=== PATIENT | female | born 1940 | race Caucasian/White ===

== ENCOUNTER → 2025-03-01 | Outpatient (CLI) | payer MEDICARE | LOC: M PLARAD 09:09 | PROVIDERS: ATTEND Physician Assistant Medical | DX: C83.31 Diffuse large B-cell lymphoma, lymph nodes of head, face, and neck (principal) | CPT/HCPCS: 78815; A9552 ==

== ENCOUNTER → 2025-06-18 | Outpatient (CLI) | payer MEDICARE | LOC: M PLARAD 13:51 | PROVIDERS: ATTEND Internal Medicine Hematology & Oncology | DX: C83.390 Primary central nervous system lymphoma (principal) ==